=== PATIENT | female | born 1970 | race Caucasian/White ===

== ENCOUNTER 2021-09-04 01:24 | Day surgery (SDC) | payer BC, SELFPAY ==
[2021-08-27 15:48] VITALS: BMI 33.7
--- NOTE | 2021-08-27 16:06 | PC.NURSE ---
Report to the Outpatient Waiting Room, entrance under the green pavilion located off [facility], at time 1130 on date 09/04/21. OR Time: 1330_. - You and your visitor will be asked a series of questions to screen for COVID 19 for your protection. - Only one visitor is allowed at this time. - The patient visitor is requested to leave or wait in car when not with patient. - A mask is required within the hospital. Patients may have clear liquids (water, carbonated beverages, clear teas, apple juice) until 3 hours prior to surgery with a maximum of 20 ounces. - No food from midnight until time of surgery - Infants may have breast milk until 4 hours before surgery, formula 6 hours prior to surgery. - Children will be allowed to drink immediately following surgery. If applicable, please bring a bottle or sippy cup to assist with drinking. Juice, water, soda, and popsicles are readily available. For infants on formula, please bring formula the day of surgery. Pacifiers are allowed. Take the following medications with a SIP of water the morning of surgery: _sertraline, valacyclovir Medications to discontinue per physician vitamins and supplements Date to take last dose_09/01/21 Please no make-up, nail icelandic, hairspray, perfume, deodorant, or body powder the day of surgery. No jewelry (including any body piercings) or valuables the day of surgery, leave them at home. Please take a shower or bath the night before, or the morning of, surgery with an antibacterial soap. Wear comfortable, loose fitting clothing. Children are encouraged to wear pajamas. - Jewelry must be removed prior to entering the operating room. Rings and piercings that are not removed may be cut off. - The hospital will not accept responsibility for valuables. - Please leave all valuables, including medications, at home the day of surgery. If you are going home after surgery, a licensed milk wagon driver must drive you home. - NO public transportation without another adult. - We recommend that an adult stay with you for 24 hours following discharge. - We also recommend that you do not drive, make important decision, drink alcoholic beverages, or take any drugs that were not prescribed by your health care provider for at least 24 hours after your discharge time. For Pediatric surgeries, we recommend two adults accompany the child home (only one inside the building at this time). Follow any additional instructions given to you from your surgeon. If you or anyone in your household have experienced Covid symptoms in the past week, please notify your surgeon or the nurse liaison at the phone number below for possible testing. Telephone instructions given to Elizabeth Parnell and asked if any additional questions and then verbalized understanding. Patient advised to call surgeon office or pre surgery nurse liaison [phone] if any additional questions.
[2021-09-04] VITALS (10 sets, daily range): BP systolic 115–127; BP diastolic 67–80; PULSE 46–67; RESP 16–24; TEMP 36.4–36.7; O2SAT 97–100
--- NOTE | 2021-09-04 08:44 | PM.IMHP ---
H&P: HPI History of Present Illness Date/Time: 09/04/21 08:44 51-year-old female presents with complaints of heavy vaginal bleeding cramping clotting as well as left lower quadrant pelvic pain. These problems have been ongoing but have worsened over the last 6-12 months. Cycles lasting 7-10 days though very irregular in timing with 3-5 days heavy with clots. Also left lower quadrant pain has been intermittent and in of itself not a significant issue. she has had an ultrasound performed which showed no significant abnormalities other than moderate endometrial thickening. Chief Complaint: Menometrorrhagia Review of Systems Review of Systems: All systems reviewed & are unremarkable except as noted in HPI and below PMFSH Past Medical History Medical History Anxiety and depression HSV-2 infection Surgical History Surgical History H/O LEEP (03/16/99) Hx of breast reduction, elective (03/16/96) Hx of cholecystectomy (03/16/97) Family History Family History Mother Asthma Hypertension Father Hypertension Social History Social History Years smoked: 5 Smoking status: Current some day smoker Tobacco type: cigarettes Alcohol intake: current Drinks per week: 2 Substance use: never Substance use type: does not use Living arrangements: with family Additional living arrangements comments: Additional occupation/education comments: nurse Gender identity (if verbalized by the patient): Female Sexual Orientation (if Verbalized by the Patient): Straight or Heterosexual Spiritual care concerns: No Meds Home Medications and Allergies Home Medications Medication Instructions Recorded Confirmed Type sertraline 100 mg tablet 100 mg PO DAILY 07/12/21 08/27/21 History valacyclovir 500 mg tablet 500 mg PO DAILY #90 tabs 08/26/21 08/27/21 Rx biotin 1 mg capsule 1 mg PO DAILY 08/27/21 08/27/21 History magnesium 30 mg tablet 30 mg PO DAILY 08/27/21 08/27/21 History vitamin B complex 1 cap PO DAILY 08/27/21 08/27/21 History Allergies Allergy/AdvReac Type Severity Reaction Status Date / Time No Known Allergies Allergy Unverified 08/26/21 10:47 Exam Const: General: cooperative, healthy appearing and comfortable Resp: Effort & Inspection: normal respiratory effort Auscultation: clear to auscultation bilaterally Cardio: Rate: regular rate Rhythm: regular rhythm GI: Inspection: normal to inspection Auscultation: normal bowel sounds : External Female Exam: normal external appearance Speculum Exam - Vagina: normal appearance of the vagina Speculum Exam - Cervix: normal appearance of the cervix Bimanual exam- vagina & uterus: enlarged ( 8-10 week size) Bimanual Exam- Adnexa, other: tender ( left adnexal tenderness to deep palpation/no masses palpated) Assessment and Plan Assessment and plan (1) Menometrorrhagia: Code(s): N92.1 - Excessive and frequent menstruation with irregular cycle Status: Acute Assessment and Plan: Endometrial ablation to be performed. (2) Endometrial thickening on ultrasound: Code(s): R93.89 - Abnormal findings on diagnostic imaging of other specified body structures Status: Acute Assessment and Plan: hysteroscopy with tissue sampling to be performed. (3) Left lower quadrant abdominal pain: Code(s): R10.32 - Left lower quadrant pain Status: Acute Assessment and Plan: Laparoscopic evaluation will be performed to assess left adnexa. (4) Encounter for female sterilization procedure: Code(s): Z30.2 - Encounter for sterilization Status: Acute Assessment and Plan: Bilateral salpingectomy be to be performed/ we have discussed permanence failure rate i
--- NOTE | 2021-09-04 11:48 | WPDANESEPPF ---
Anes - Initial Pre Proc Eval Procedure: Operation Date: 09/04/21 13:30 Proposed Procedures p Hysteroscopy, Dilation and Curettage, Lulu Endometrial Ablation, Laparoscopic Bilateral Salpingectomy - Eduar Cunningham MD Date/Time: 09/04/21 11:48 Surgeon: Eduar Cunningham MD Pre Op Diagnosis: Menometrorrhagia, Desires Sterilization Patient Data Age: 51 Gender: F Height: 1.68 m Weight: 95 kg Allergies Allergy/AdvReac Type Severity Reaction Status Date / Time No Known Allergies Allergy Unverified 08/26/21 10:47 Home Medications Medication Instructions Recorded Confirmed Type sertraline 100 mg tablet 100 mg PO DAILY 07/12/21 08/27/21 History valacyclovir 500 mg tablet 500 mg PO DAILY #90 tabs 08/26/21 08/27/21 Rx biotin 1 mg capsule 1 mg PO DAILY 08/27/21 08/27/21 History magnesium 30 mg tablet 30 mg PO DAILY 08/27/21 08/27/21 History vitamin B complex 1 cap PO DAILY 08/27/21 08/27/21 History Patient hx anesthesia problems: none Family hx anesthesia problems: none Results Review: All pre-operative results and documents have been reviewed as part of the pre-operative evaluation. [facility] Past Medical History Medical History (Updated 09/04/21 @ 11:48 by Kiel Moffett MD) Anxiety and depression HSV-2 infection Obesity Surgical History Surgical History H/O LEEP (03/16/99) Hx of breast reduction, elective (03/16/96) Hx of cholecystectomy (03/16/97) Family History Family History Mother Asthma Hypertension Father Hypertension Social History Social History Years smoked: 5 Smoking status: Current some day smoker Tobacco type: cigarettes Alcohol intake: current Drinks per week: 2 Substance use: never Substance use type: does not use Living arrangements: with family Additional living arrangements comments: Additional occupation/education comments: nurse Gender identity (if verbalized by the patient): Female Sexual Orientation (if Verbalized by the Patient): Straight or Heterosexual Spiritual care concerns: No Anes - Eval Final PreProcedure Day of Procedure 09/04/21 11:48 Patient weight: obese Heart: regular rate and rhythm Lungs: clear to auscultation Airway: Mallampati scale class 1 Neurological: alert and oriented Last oral intake: >/= 8 hours ASA classification: II Emergent: no Anesthetic plan: proceed Anesthesia type and monitoring: general ETT and standard monitoring Results Review: All pre-operative results and documents have been reviewed as part of the pre-operative evaluation. Informed Consent: The patient's anesthetic plan and its attendant risks and benefits were discussed with the patient/family/POA. Questions were solicited and answers provided to the satisfaction of the patient/family/POA.
--- NOTE | 2021-09-04 11:55 | WPDHPUPDATE1 ---
History and Physical Update Update Date/Time: 09/04/21 11:55 History and Physical has been reviewed, including an updated exam of the patient. There are NO changes in the patient's condition. Risks, benefits, and alternatives have been discussed and questions answered. Patient agrees to proceed with procedure.
[2021-09-04] MEDS: ACETAMINOPHEN 500 MG TABLET 1000 MG PO (12:22)
[2021-09-04] MEDS: KETOROLAC 15 MG/ML VIAL (*BKC) IV PUSH (12:33)
[2021-09-04] MEDS: LACTATED RINGERS 1,000 ML 30 ML IV CONT ×2 (12:34→13:50)
--- NOTE | 2021-09-04 13:49 | W.PM.PROC2 ---
Procedure Note - Detailed Date of Procedure 09/04/21 Pre-op Diagnosis Menometrorrhagia, Desires Sterilization Post-op Diagnosis Same Procedure Performed 1. Laparoscopic bilateral salpingectomy 2. Hysteroscopy with uterine curettings 3. Lulu endometrial ablation Surgeon Eduar Cunningham MD Anesthesia General Findings hysteroscopic exam revealed slightly thickened endometrial tissue the no polyps or significant abnormalities were noted. Laparoscopic evaluation revealed mildly enlarged uterus with normal tubes and ovaries. Description of Procedure Patient prepped in usual manner for this procedure and cervical instruments were placed for uterine mobility. Periumbilical and lower quadrant incisions were made and trocars were placed under direct visualization. Using the Harmonic scalpel on the mesosalpinx bilaterally the tubes were and removed. There was no bleeding during this portion of the procedure. Gas was allowed to escape and after the instruments removed trocar sites were approximated using 4-0 Monocryl. attention was then placed to the cervix and the hysteroscope was placed with no abnormalities noted. Curettings were obtained and the Lulu instrument was placed. Cavity assessment was performed and instrument was activated. At the end the procedure good destruction was noted and the patient was then sent to recovery room in stable condition. Estimated Blood Loss 25 Drains No Packing No Pathology Yes Complications No immediate complications Condition Stable Disposition PACU [facility] Billing Surgery - Charge Forward: Surgery Billing
[2021-09-04] MEDS: fentaNYL CITRATE INJ (*CRX) 100 MCG/2 ML VIAL 25 MCG IV PUSH (14:15)
[2021-09-04] MEDS: oxyCODONE (*CRX) 5 MG/5 ML ORAL SOLN IR 2.5 MG PO (15:50)
== END 2021-09-04 16:27 | disposition home or self-care (01) ==
PROVIDERS: Visit Provider Obstetrics & Gynecology
PROC: 0UDB8ZZ Extraction of Endometrium, Via Natural or Artificial Opening Endoscopic (ICD-10-PCS; CPT 58558; principal; 2021-09-04 13:30)
PROC: (CPT 58671; 2021-09-04 13:30)
DX: N92.1 Excessive and frequent menstruation with irregular cycle (principal); Z30.2 Encounter for sterilization; R10.2 Pelvic and perineal pain; R10.32 Left lower quadrant pain; F41.8 Other specified anxiety disorders; B00.9 Herpesviral infection, unspecified; E66.9 Obesity, unspecified; Z68.34 Body mass index [BMI] 34.0-34.9, adult; F17.210 Nicotine dependence, cigarettes, uncomplicated
CPT/HCPCS: 58661; 58563; 88302; 88305; A9270; J0330; J0461; J1100; J1885; J2250; J2405; J2704; J2710; J3010; J7030; J7120; Q9968

== ENCOUNTER 2022-09-10 09:26 | Outpatient (CLI) | payer BC, SELFPAY ==
[2022-09-10 10:00] LABS: Hematocrit 39.9 % (37.0-47.0); Mean Corpuscular HGB Conc 32.6 g/dl (32-36); Mean Corpuscular Hemoglobin 30.2 pg (26-34); Mean Corpuscular Volume 92.6 fl (80-100); Mean Platelet Volume 10.6 fl (7.4-10.4); Platelet Count Result 181 k/mm3 (150-375); Red Blood Count 4.31 M/mm3 (4.2-5.4); Red Cell Distribution Width 12.5 % (11.5-14.5); White Blood Count 5.3 K/mm3 (4.5-10.0)
== END 2022-09-10 09:27 | disposition home or self-care (01) ==
LOC: ANHSURGERY 09:34
PROVIDERS: Visit Provider Obstetrics & Gynecology
DX: N92.1 Excessive and frequent menstruation with irregular cycle (principal); Z01.818 Encounter for other preprocedural examination
CPT/HCPCS: 36415; 85027; 86850; 86900; 86901

== ENCOUNTER 2022-09-11 01:06 | Day surgery (SDC) | payer BC, SELFPAY ==
[2022-09-09 10:51] VITALS: BMI 32.3
--- NOTE | 2022-09-09 10:56 | SUR.PREOP ---
Report to the Outpatient Waiting Room, entrance under the green pavilion located off [facility], at time _0600 on date _09/11/22 . Planned Procedure Time: _0730 . Time changes happen often and if your time is changed the preop area will call you the afternoon before. - You and your visitor will be asked to self-screen and do not enter if you have any COVID symptoms. - A mask is optional within the hospital at this time. Patients may have clear liquids (water, carbonated beverages, clear teas, apple juice) until 3 hours prior to surgery with a maximum of 20 ounces. - No food from midnight until time of surgery - Infants may have breast milk until 4 hours before surgery, infant formula 6 hours prior to surgery. - Children will be allowed to drink immediately following surgery. If applicable, please bring a bottle or sippy cup to assist with drinking. Juice, water, soda, and popsicles are readily available. For infants on formula, please bring formula the day of surgery. Pacifiers are allowed. Take the following medications with a SIP of water the morning of surgery: _SERTALINE DO NOT STOP ANY OF YOUR OTHER PRESCRIPTION MEDICATIONS PRIOR TO SURGERY ?EXCEPT THE FOLLOWING Medications to discontinue per physician VITAMINS SUPPLEMENTS Date to take last dose__09/09/22 Please no make-up, nail british, hairspray, perfume, deodorant, or body powder the day of surgery. No jewelry (including any body piercings) or valuables the day of surgery, leave them at home. Please take a shower or bath the night before, or the morning of, surgery with an antibacterial soap. Wear comfortable, loose fitting clothing. Children are encouraged to wear pajamas. - Jewelry must be removed prior to entering the operating room. Rings and piercings that are not removed may be cut off. - The hospital will not accept responsibility for valuables. - Please leave all valuables, including medications, at home the day of surgery. If you are going home after surgery, a licensed batch mixing truck driver must drive you home. - NO public transportation without another adult if you receive anesthesia. - We recommend that an adult stay with you for 24 hours following discharge. - We also recommend that you do not drive, make important decision, drink alcoholic beverages, or take any drugs that were not prescribed by your health care provider for at least 24 hours after your discharge time. For Pediatric surgeries, we recommend two adults accompany the child home. Follow any additional instructions given to you from your surgeon. If you or anyone in your household have experienced Covid symptoms in the past week, please notify your surgeon or the nurse liaison at the phone number below for possible testing. Telephone instructions given to __COREY RUSH and asked if any additional questions and then verbalized understanding. Patient advised to call surgeon office or pre surgery nurse liaison [phone] if any additional questions.
--- NOTE | 2022-09-10 14:06 | WPDANESEPPF ---
Anes - Initial Pre Proc Eval Procedure: Operation Date: 09/11/22 07:30 Proposed Procedures p Robotic Assisted Total Laparoscopic Hysterectomy - Eduar Cunningham MD Date/Time: 09/10/22 14:06 Surgeon: Eduar Cunningham MD Pre Op Diagnosis: Pelvic Pain Patient Data Age: 52 Gender: F Height: 1.68 m Weight: 90.9 kg Allergies Allergy/AdvReac Type Severity Reaction Status Date / Time No Known Allergies Allergy Verified 09/11/22 06:21 Home Medications Medication Instructions Recorded Confirmed Type sertraline 100 mg tablet 100 mg PO DAILY 07/12/21 09/11/22 History magnesium 30 mg tablet 30 mg PO DAILY 08/27/21 09/11/22 History vitamin B complex 1 cap PO DAILY 08/27/21 09/11/22 History valacyclovir 500 mg tablet 500 mg PO DAILY #90 tabs 08/06/22 09/09/22 Rx omega 1-hrs-pnb-fish oil 1,200 mg 1 cap PO DAILY 09/09/22 09/11/22 History (144 mg-216 mg) capsule (Fish Oil) rhubarb root extract 4 mg tablet 4 mg PO DAILY 09/09/22 09/11/22 History (Estroven Complete Menopause Relief) Patient hx anesthesia problems: none Family hx anesthesia problems: none Results Review: All pre-operative results and documents have been reviewed as part of the pre-operative evaluation. [facility] Past Medical History Medical History (Updated 09/05/22 @ 11:28 by Eduar Cunningham MD) Anxiety and depression HSV-2 infection Obesity Screening mammogram, encounter for Surgical History Surgical History H/O colonoscopy (~06/2021) H/O LEEP (03/16/99) History of endoscopy (~06/2021) History of hysteroscopy (09/04/21) hscope D&C / bilateral salpingectomy / adan endometrial ablation Hx of breast reduction, elective (03/16/96) Hx of cholecystectomy (03/16/97) Family History Family History Mother Asthma Hypertension Father Hypertension Social History Social History (Updated 09/05/22 @ 08:25 by SAUL Prado) Years smoked: 5 Smoking status: Never smoker Tobacco type: cigarettes Alcohol intake: current Drinks per week: 1 Substance use: never Substance use type: does not use Lack of Transportation: No Lack of Food: Never True Current Housing: I Have Housing Concerned About Future Housing: No Difficulty Paying Gas/Electric Bills: No Difficulty Paying for Meds: No Currently Unemployed: No Education: Associate Degree Difficulty w/ Childcare or Family Care: No Living arrangements: with family Additional living arrangements comments: Occupation/Education: occupation Additional occupation/education comments: nurse Gender identity (if verbalized by the patient): Female Sexual Orientation (if Verbalized by the Patient): Straight or Heterosexual Spiritual care concerns: No Anes - Eval Final PreProcedure Day of Procedure 09/10/22 14:06 Patient weight: obese Heart: regular rate and rhythm Lungs: clear to auscultation Airway: Mallampati scale class II Neurological: alert and oriented Last oral intake: >/= 8 hours ASA classification: II Emergent: no Anesthetic plan: proceed Anesthesia type and monitoring: general ETT and standard monitoring Results Review: All pre-operative results and documents have been reviewed as part of the pre-operative evaluation. Informed Consent: The patient's anesthetic plan and its attendant risks and benefits were discussed with the patient/family/POA. Questions were solicited and answers provided to the satisfaction of the patient/family/POA.
[2022-09-11] VITALS (13 sets, daily range): BP systolic 107–123; BP diastolic 56–72; PULSE 55–73; RESP 12–19; TEMP 36.5–37.3; O2SAT 93–100; BMI 35.4
[2022-09-11] MEDS: LACTATED RINGERS 1,000 ML 30 ML IV CONT ×2 (06:35→09:19)
[2022-09-11] MEDS: KETOROLAC 15 MG/ML VIAL (*BKC) IV PUSH (06:45)
[2022-09-11] MEDS: ACETAMINOPHEN 500 MG TABLET 1000 MG PO (06:45)
--- NOTE | 2022-09-11 07:16 | WPDHPUPDATE1 ---
History and Physical Update Update Date/Time: 09/11/22 07:16 History and Physical has been reviewed, including an updated exam of the patient. There are NO changes in the patient's condition. Risks, benefits, and alternatives have been discussed and questions answered. Patient agrees to proceed with procedure.
[2022-09-11] MEDS: ceFAZolin 2 GM/D5W 50 ML 2 GM/50 ML BAG IVPB (07:28)
--- NOTE | 2022-09-11 09:01 | W.PM.PROC2 ---
Procedure Note - Detailed Date of Procedure 09/11/22 Pre-op Diagnosis 1. Pelvic pain 2. Post endometrial ablation syndrome Post-op Diagnosis Same Procedure Performed Robotic assisted total laparoscopic hysterectomy Surgeon Eduar Cunningham MD Anesthesia General Findings Moderately enlarged uterus. Tubes surgically absent. Ovaries without abnormality. Moderate amount of old blood drained with cervical dilation. Description of Procedure Patient prepped draped usual manner for this procedure. Cervical instruments were placed for uterine mobility throughout the case. Of note with dilation of the cervix [id number] of old dark blood drained from the uterus. Attention was then placed the abdomen and trocar sites were marked and placed under direct visualization. Attached to the [employer] system instruments were placed also under direct visualization. Surgeon moved to the console with findings as noted above. Round ligament cauterized and cut bilaterally a bladder flap was developed without difficulty. Posterior leaf the broad ligament was also incised to expose the uterine vessels. Utero-ovarian ligaments were then cauterized and cut to release the ovaries out of the operative field. Uterine vessels were skeletonized cauterized and cut and once the vascularity to the uterus was taken down the anterior colpotomy incision was made. This was carried circumferentially to allow the uterus to be delivered into the vagina. Cuff was then closed using V lock suture from the right angle to the left angle. And then a 2nd layer from the left angle to the right angle with good approximation hemostasis noted. Irrigation was undertaken with no bleeding. Anibal was placed empirically overall surgical edges. Trocars removed after the gas had been is gaped. Incisions approximated using 4-0 Monocryl patient was sent cover room stable condition. Estimated Blood Loss 100 Drains No Packing No Pathology Yes Complications No immediate complications Condition Stable Disposition PACU [facility] Billing Surgery - Charge Forward: Surgery Billing
[2022-09-11] MEDS: fentaNYL CITRATE INJ (*CRX) 100 MCG/2 ML VIAL 25 MCG IV PUSH ×4 (09:48→10:17)
--- NOTE | 2022-09-11 10:40 | ADMGEN ---
This patient, Elizabeth Parnell, was admitted to OB 2nd Floor Room 289-00. Patient/family oriented to hospital policies and general routines including ID bracelet, bed and alarms, visiting hours, pain management, procedures, bathroom and other care routines, personal items, smoking policy, room service/diet, and visiting hours. Information on how to activate the Rapid Response Team has been discussed. Patient/Family are encouraged to report perceived risks to care and to ask questions if they do not understand what they are told or what they should do.
[2022-09-11] MEDS: DEXTROSE 5%/0.45% SOD CHL 1,000 ML 125 ML IV CONT (11:16)
[2022-09-11] MEDS: HYDROcodone/acetaminophen (*CRX) 10-325 MG TABLET 1 TAB PO (11:48)
[2022-09-11] MEDS: KETOROLAC 30 MG/ML VIAL (*BKC) IV PUSH (13:24)
[2022-09-11] MEDS: SIMETHICONE 80 MG TAB.CHEW PO ×4 (13:33→22:08)
[2022-09-11] MEDS: HYDROcodone/acetaminophen (*CRX) 5-325 MG TABLET 1 TAB PO ×2 (15:14→22:08)
[2022-09-11] MEDS: IBUPROFEN 600 MG TABLET PO (19:18)
[2022-09-12 05:15] VITALS: BP 112/66; PULSE 62; RESP 16; TEMP 36.6; O2SAT 97
[2022-09-12] MEDS: SIMETHICONE 80 MG TAB.CHEW PO ×2 (05:20→08:48)
[2022-09-12] MEDS: IBUPROFEN 600 MG TABLET PO (05:20)
[2022-09-12 05:22] LABS: Basophils Percent Auto 0.2 % (0.2-1.2); Eosinophils Absolute Auto 0.1 K/mm3 (0-0.3); Eosinophils Percent Auto 1.3 % (0-4.4); Hematocrit 36.8 % (37.0-47.0); Hemoglobin 11.7 g/dL (12.0-15.0); Immature Granulocyte Absolute 0.03 K/mm3 (0.00-0.031); Immature Granulocyte Percent A 0.3 % (0-0.5); Mean Corpuscular HGB Conc 31.8 g/dl (32-36); Mean Corpuscular Hemoglobin 29.9 pg (26-34); Mean Corpuscular Volume 94.1 fl (80-100); Mean Platelet Volume 10.8 fl (7.4-10.4); Monocytes Absolute Auto 0.6 K/mm3 (0.1-0.6); Monocytes Percent Auto 6.4 % (2.6-8.5); Neutrophils Percent Auto 73.8 % (45.5-73.1); Platelet Count Result 168 k/mm3 (150-375); Red Blood Count 3.91 M/mm3 (4.2-5.4); Red Cell Distribution Width 12.7 % (11.5-14.5); White Blood Count 9.4 K/mm3 (4.5-10.0)
--- NOTE | 2022-09-12 07:54 | P.PNAN_ITS ---
Anes - Prog Note Post-Op Date/Time: 09/12/22 07:54 Vital Signs: Last Vital Signs Temp 36.6 C 09/12/22 05:15 Pulse 62 09/12/22 05:15 Resp 16 09/12/22 05:15 BP 112/66 09/12/22 05:15 Pulse Ox 97 09/12/22 05:15 O2 Del Method Room Air 09/12/22 05:15 O2 Flow Rate 1 09/11/22 15:10 Pain Score (VAS): 2 I/O: Intake & Output 09/11/22 09/11/22 09/12/22 15:59 23:59 07:59 Intake Total 800 1440 Output Total 450 1150 Balance 350 290 Laboratory Tests 09/12/22 05:12 09/12/22 05:12 WBC 9.4 RBC 3.91 L Hgb 11.7 L Hct 36.8 L MCV 94.1 MCH 29.9 MCHC 31.8 L RDW 12.7 Plt Count 168 MPV 10.8 H Immature Gran % (Auto) 0.3 Neut % (Auto) 73.8 H Lymph % (Auto) 18.0 L [place] % (Auto) 6.4 Eos % (Auto) 1.3 Baso % (Auto) 0.2 Lymph # (Auto) 1.70 [place] # (Auto) 0.6 Eos # (Auto) 0.1 Baso # (Auto) 0.0 Abs Immat Gran (auto) 0.03 Absolute Neuts (auto) 7.0 H Absolute Nucleated RBC 0.0 Nucleated RBC % 0.0 Patient Feedback: Patient satisfied with anesthetic care.
[2022-09-12 08:15] VITALS: BP 125/74; PULSE 59; RESP 16; TEMP 37.1; O2SAT 99
[2022-09-12] MEDS: VITAMIN B COMPLEX CAPSULE 1 CAP PO (08:46)
[2022-09-12] MEDS: OMEGA 3 POLYUNSAT FATTY ACIDS 1 GM CAP PO (08:46)
[2022-09-12] MEDS: SERTRALINE HCL 50 MG TABLET 100 MG PO (08:46)
[2022-09-12] MEDS: valACYclovir HCL 500 MG TABLET PO (08:46)
[2022-09-12] MEDS: HYDROcodone/acetaminophen (*CRX) 5-325 MG TABLET 1 TAB PO (08:48)
[2022-09-12 08:50] VITALS: PULSE 59; RESP 16; O2SAT 99
== END 2022-09-12 10:40 | disposition home or self-care (01) ==
LOC: ANHSURGERY 06:05 → ANHOB2 10:44
PROVIDERS: Visit Provider Obstetrics & Gynecology
PROC: (CPT 58570; principal; 2022-09-11 07:30)
DX: N99.85 Post endometrial ablation syndrome (principal); R10.2 Pelvic and perineal pain; N80.03 Adenomyosis of the uterus; N72 Inflammatory disease of cervix uteri; B00.9 Herpesviral infection, unspecified; F41.8 Other specified anxiety disorders; E66.9 Obesity, unspecified; Z68.35 Body mass index [BMI] 35.0-35.9, adult
CPT/HCPCS: 58570; S2900; 36415; 85025; 85027; 86850; 86900; 86901; 88307; 99199; A9270; J0330; J0461; J0690; J1100; J1885; J2250; J2405; J2704; J2710; J3010; J7030; J7120

== ENCOUNTER 2023-06-23 17:30 | Outpatient (CLI) | payer OTHER, SELFPAY ==
[2023-06-23 18:28] LABS: Free T4 Free Thyroxine 1.19 ng/mL (0.78-2.19)
[2023-06-26 04:17] LABS: Thyroid Peroxidase Antibodies <1 IU/mL (<9)
[2023-07-02 10:39] LABS: Estradiol, Ultrasensitive 34 pg/mL
== END 2023-06-23 17:31 | disposition home or self-care (01) ==
LOC: ANHLAB 17:31
PROVIDERS: Visit Provider Obstetrics & Gynecology
DX: N95.1 Menopausal and female climacteric states (principal)
CPT/HCPCS: 36415; 82670; 83001; 84439; 84443; 86376